=== PATIENT | male | born 1935 | race Caucasian/White ===

== ENCOUNTER 2017-02-08 06:49 | Inpatient (IN) ==
[2017-02-08] MEDS ORDERED: LIDOCAINE 1% (10mg/ml) 10mL MDV SQ ONE (07:05)
[2017-02-08] MEDS ORDERED: ONDANSETRON 4 MG/2 ML INJECTION IVP ONE (07:05)
[2017-02-08] MEDS ORDERED: DEXAMETHASONE 4 MG/ML INJECTION IVP ONE (07:05)
[2017-02-08] MEDS ORDERED: ACETAMINOPHEN 500 MG TABLET PO ONE (07:05)
[2017-02-08] MEDS ORDERED: TRANEXAMIC ACID 1,000 MG in NS 100 ML TOP SCH (07:05)
[2017-02-08] MEDS ORDERED: CEFAZOLIN 1 G INJECTION IV ONE (07:05)
[2017-02-08] MEDS ORDERED: NOZIN NASAL SWAB NAS ONE ×3 (07:05→11:47)
[2017-02-08] MEDS ORDERED: METOCLOPRAMIDE 10mg/2ml INJECTION IVP ONE (07:05)
[2017-02-08] MEDS ORDERED: FAMOTIDINE PB 20 MG/50 ML BAG IV ONE (07:05)
[2017-02-08] MEDS ORDERED: SALINE FLUSH 10ml SYRINGE IVF PRN (07:05)
--- NOTE | 2017-02-08 07:11 | History & Physical Update ---
- History and Physical Update Date: 02/08/17 Update: I evaluated this patient and found no changes in the history and clinical exam findings. The treatment plan and recommendations are also unchanged from the previous documentation.
[2017-02-08] MEDS ORDERED: VANCOMYCIN 1,000 MG INJECTION ONE (07:13)
[2017-02-08 07:36] VITALS: BMI 30.7
[2017-02-08] MEDS: NS 1,000 ML IV SCH ×4 (07:50→21:59)
[2017-02-08] MEDS ORDERED: ACETAMINOPHEN IV 1,000 MG/100 ML VIAL IV ONE (07:57)
[2017-02-08] MEDS ORDERED: TOTAL JOINT INJECTION MIXTURE 65.25 ml OPSITE ONE (08:00)
[2017-02-08] MEDS ORDERED: LIDOCAINE 1% (10mg/ml) 2mL INJ PF SDV ID ONE (08:06)
[2017-02-08] MEDS ORDERED: PROPOFOL 500 MG/50 ML VIAL IV ONE (08:22)
[2017-02-08] MEDS ORDERED: MIDAZOLAM 2mg/2ml INJECTION ONE (08:49)
[2017-02-08] MEDS ORDERED: FentaNYL 100 MCG/2 ML INJECTION ONE (09:08)
[2017-02-08] MEDS ORDERED: EPHEDRINE 50mg/ml INJECTION ONE (09:17)
[2017-02-08] MEDS ORDERED: SALINE FLUSH 10ml SYRINGE ONE (09:17)
[2017-02-08] MEDS ORDERED: EPINEPHrine 0.25 MG, BUPIVACAINE 0.25% PF 75 ML, MORPHINE SULFATE 15 MG, KETOROLAC INJ ... IJ ONE (09:24)
[2017-02-08] MEDS ORDERED: HYDROMORPHONE 2 MG/ML INJECTION ONE (09:32)
[2017-02-08] MEDS ORDERED: GLYCOPYRROLATE 0.4 MG/2 ML INJECTION ONE (09:45)
--- NOTE | 2017-02-08 09:58 | Anesthesia Preoperative Report ---
Anesthesia Preoperative Record - Date and Time Date: 02/08/17 Preoperative Diagnosis: right knee osteoarthritis NPO Since Date: 02/08/17 NPO Since Time: 00:00 Allergies/Adverse Reactions: Allergies Allergy/AdvReac Type Severity Reaction Status Date / Time levofloxacin Allergy Intermediate Verified 02/08/17 07:21 sulfamethoxazole Allergy Unknown Verified 02/08/17 07:21 trimethoprim Allergy Unknown Verified 02/08/17 07:21 - Vital Signs Vital Signs: Temp Pulse Resp BP Pulse Ox 98.2 F 57 L 15 199/89 H 96 02/08/17 07:05 02/08/17 07:36 02/08/17 07:05 02/08/17 07:05 02/08/17 07:05 Height and Weight: Height 5 ft 7 in Weight 89 kg Body Mass Index 30.7 - Medications Inpatient Medications: Current Medications Sodium Chloride (Normal Saline) 1,000 mls @ 50 mls/hr IV .Q20H HOMERO Last Admin: 02/08/17 07:50 Dose: 50 mls/hr Tranexamic Acid 1,000 mg/ (Sodium Chloride) 110 mls @ 1,000 mls/min TOP INTRAOP HOMERO Stop: 02/09/17 07:06 Isopropyl Alcohol (Nozin Nasal Swab) 1 each ARIANA 0600,1400,2200 HOMERO Sodium Chloride (Iv Flush) 10 - 80 ml IVF PRN PRN PRN Reason: Flushing Home Medications: Home Medications Medication Instructions Recorded Confirmed Type Labetalol HCl 100 mg PO BID #0 07/30/13 02/08/17 History Tamsulosin HCl 0.4 mg PO HS #0 07/30/13 02/08/17 History Aspirin 1 tab PO DAILY #0 tab 01/28/15 02/08/17 History Losartan Potassium 50 mg PO DAILY #0 tab 01/03/17 02/08/17 History Sertraline HCl 100 mg PO DAILY #0 tab 01/03/17 02/08/17 History hydroCHLOROthiazide 1 tab PO WB #0 tab 01/03/17 02/08/17 History [Hydrochlorothiazide] Is Patient on Beta Shagufta?: Yes Beta Shagufta: (LABETOLOL) - Medical History Respiratory: DENIES: Asthma, Chronic Obstructive Pulmonary Disease (COPD) Cardiovascular: Reports: Angina (stent in , heart cath in negative, no recent angina, clearance given) DENIES: Congestive Heart Failure Gastrointestional: DENIES: Gastroesophageal Reflux Disease Neuro/Musculoskeletal: Reports: Back Problems (stated had trouble with spinal in past) Renal/Endocrine: Reports: Renal Failure (chronic kidney disease stage 3) Other History: Reports: Anesthesia Reactions (difficulty with performing spinal in past) - Surgical History Cardiac Surgeries/Treatments: Reports: Cardiac Catheterization (stents 2006) GI Surgery/Treatments: Reports: Cholecystectomy, Hernia Repair (Rt ing x2), Other (colonoscopy) Surgery/Treatment: REPORT: Transurethral Resection - Social History Smoking Status: Former smoker Hx Chewing Tobacco Use: No Second Hand Exposure: No Substance Use Type: does not use Alcohol Intake Frequency: does not drink - Pertinent Findings Laboratory: CBC and BMP 02/08/17 07:22 02/08/17 07:22 BMP 02/08/17 07:22 Sodium 143 Potassium 4.3 Chloride 106 Carbon Dioxide 25 BUN 25.0 H Creatinine 1.1 Glucose 117 H Calcium 9.2 Liver Function 02/08/17 Range/Units 07:22 Total Bilirubin 0.60 (0.20-1.30) MG/DL AST 26 (17-59) U/L ALT 35 (21-72) U/L Alkaline Phosphatase 82 (38-126) U/L Albumin 4.6 (3.5-5.0) G/DL EKG Rhythm: Sinus Bradycardia, Premature Atrial Contractions, Atrial Fibrillation with RVR - Physical Exam Respiratory Exam: Present: lungs clear Cardiovascular Exam: Present: regular rate and rhythm - Airway Assessment Mallampati Score: II TMD: 3 Fingerbreadths Neck Extension: fair Teeth: poor dentation (missing and poor) Overall Assessment: may be difficult mask vent (full barth) - ASA ASA Score: 3 - Plan Anesthesia: General TIVA, General Inhalation Gases Regional/Trunk Block: Spinal - Discussion Discussion: Discussed risks/options/alternatives of anesthesia and questions answered. Patient consents. Nursing pain assessment noted. plan discussed with pt. Plan to attempt spinal as first line of anesthesia. If have difficulty, as in past, will proceed with a general with gas. Pt agrees. Present for Discussion: children Attestation Statement: Prior to the delivery of any anesthetic medication, I examined the patient, developed the plan, obtained the patient's consent and discussed the risk and benefits of the procedure with the patient/guardian.
[2017-02-08] MEDS ORDERED: VANCOMYCIN 1,000 MG INJECTION IAR ONE (10:14)
--- NOTE | 2017-02-08 10:29 | Operative Note ---
- Procedure Date of Admission: 02/08/17 Side: right Preoperative Diagnosis: knee primary DJD Postoperative Diagnosis: Same as preoperative diagnosis. Operation: total knee arthroplasty (right) Surgeon: Velma Lara MD Roller Inspector And Mender: CHUCKIE Wilkes Complications: None. Anesthesia: General Inhalation Gases Peripheral Nerve Block: Saphenous-Right Estimated Blood Loss: See Anesthesia Record. Fluids: Please see Anesthesia Record. Description of Procedure: Mr. River and his right knee were identified and marked in the preoperative holding area he is brought back to the operating suite and placed supine on the operating table. Spinal anesthetic was attempted but was not successful so than he was placed under general anesthesia and intubated. His right lower extremity was prepped and draped in my normal sterile fashion and timeout was performed. He had a varus deformity and motion on to 90 passively even when asleep. The leg was exsanguinated and tourniquet inflated 250 mmHg. A standard anterior incision followed by a medial parapatellar approach was utilized. He had severe disease in medial compartment. A distal femoral cut was made in 5 of valgus using intramedullary guide. The femur was sized at a 4 and rotation set using the epicondylar axis. Distal femoral cuts were performed. A proximal tibial cut was made using extramedullary guide. Remaining osteophytes and meniscus were removed. Gaps were checked and they were well balanced and rectangular. Trial components were placed with a 9 mm spacer. This allowed for flexion 110 and the patella tracked well. The knee was stable throughout range of motion. The patella was resurfaced with the knee in extension to a size 29. The tibia rotation was then marked and the tibia stamped at the proper rotation at a size 4. The bone was prepared for cementing and all components cemented into place and allowed to cure in extension. Betadine solution was used for 3 minutes during the curing period and then fully irrigated out with 1 L of normal saline. The tourniquet was deflated and hemostasis obtained with electrocautery. 1 g of TXA was allowed to sit in the wound for 5 minutes and then suctioned out. After the cement had cured the knee was taken through range of motion check for balance and stability which were good. Vancomycin powder was placed into the wound. The arthrotomy was closed with #1 Vicryl. The remainder of the wound was then closed by my players assistant utilizing 2-0 vycral in the subcutaneous tissue. 4-0 monocryl was used in the subcuticular layer followed by dermabond and a sterile dressing. After closure the patient will be transferred to the recovery room under the care of anesthesia.
[2017-02-08] MEDS ORDERED: ROPIVACAINE 0.5% (5mg/ml) 30ml INJ ONE (10:40)
--- NOTE | 2017-02-08 11:22 | Anesthesia Procedure Note ---
Peripheral Nerve Blockade - Procedure Physician: Amari Lara MD Date: 02/08/17 Discussion: Discussed risks/options/alternatives of anesthesia and questions answered. Patient consents. Nursing pain assessment noted. Block Start: 10:58 Block Stop: 11:05 Blocked Employed: Adductor Canal Indication: Post-Operative Pain Approach: Right Side Confirmed Position: Supine Patient: Consent, Risks/Benefits Discussed, Informed, Post Block Act. Discussed IV Sedation: No Initial Vital Signs: Temperature 98.2 F 02/08/17 07:05 Temperature Source Oral 02/08/17 07:05 Pulse Rate 57 L 02/08/17 07:05 Respiratory Rate 15 02/08/17 07:05 Blood Pressure 199/89 H 02/08/17 07:05 Blood Pressure Mean 125 02/08/17 07:05 Blood Pressure Position Sitting 02/08/17 07:05 Pulse Oximetry 96 02/08/17 07:05 Oxygen Delivery Method 02/08/17 07:05 Post Vital Signs: Temp Pulse Resp BP Pulse Ox 98.2 F 54 L 10 119/60 96 02/08/17 07:05 02/08/17 11:05 02/08/17 11:05 02/08/17 11:05 02/08/17 11:05 Initial Pain Pain Score: 0 Post Block Pain Score: 0 Prep: Chlorhexadine/ETOH Ultrasound Used?: Yes - Injectate Ropivacaine (%): 0.5 Ropivacaine (mL): 30 Was Epi 1:200,000 Used?: No Injection: Injection made incrementally with constant monitoring and aspiration every 5 ml. Negative aspirations
[2017-02-08] MEDS ORDERED: DiphenhydrAMINE 25 MG CAPSULE PO PRN (11:47)
[2017-02-08] MEDS ORDERED: DiphenhydrAMINE 50 MG/ML INJECTION IVP PRN (11:47)
[2017-02-08] MEDS ORDERED: ONDANSETRON 4 MG/2 ML INJECTION IVP PRN (11:47)
[2017-02-08] MEDS ORDERED: Oxycodone *IR* 5 MG TABLET PO PRN (11:47)
[2017-02-08] MEDS ORDERED: LORazepam 1 MG TABLET PO PRN (11:47)
--- NOTE | 2017-02-08 11:55 | Anesthesia Postoperative Note ---
- Date and Time Date: 02/08/17 Time: 11:53 - Status Patient Participated in Evaluation: Patient Participated in Person Vital Signs: Temp Pulse Resp BP Pulse Ox 96.9 F 67 16 165/76 H 94 02/08/17 11:45 02/08/17 11:45 02/08/17 11:45 02/08/17 11:45 02/08/17 11:45 Respiratory Function: Airway Patent Cardiovascular Function: Regular Pulse Mental Status: Alert and Oriented Pain Intensity: 2 Hydration: Taking PO Fluids Complications During Recover: None Apparent - Follow-Up Instructions Instructions: Per Surgeon Additional Comments: adductor canal block appears to be working well. Pt comfortable.
--- NOTE | 2017-02-08 12:13 | XRay Report ---
Indication: post-op total knee PROCEDURE: XR knee RT 2V: Encounter: Initial Comparison: None Findings: Postoperative changes of right total knee replacement are seen. There is expected postoperative subcutaneous gas. No evidence of hardware failure or acute fracture. No retained radiopaque surgical instruments or sponges. Overlying material causing artifact. Impression: New right total knee prosthesis without evidence of immediate complication. .
[2017-02-08] MEDS ORDERED: CODEINE PO PRN (12:21)
[2017-02-08] MEDS ORDERED: APAP PO PRN (12:21)
[2017-02-08] MEDS ORDERED: ACETAMINOPHEN 325 MG TABLET PO SCH (13:00)
[2017-02-08] MEDS: NOZIN NASAL SWAB NAS SCH ×5 (14:38→23:05)
[2017-02-08] MEDS: CEFAZOLIN 2 G in NS 100 ML IV SCH (17:25)
[2017-02-08] MEDS: DOCUSATE SODIUM 100 MG CAPSULE PO SCH (21:48)
[2017-02-08] MEDS: LABETALOL 100 MG TABLET PO SCH (21:49)
[2017-02-08] MEDS: ASPIRIN *EC* 325 MG TABLET PO SCH (21:52)
[2017-02-08] MEDS ORDERED: SENNOSIDES 8.6 MG TABLET PO SCH (22:00)
[2017-02-08] MEDS ORDERED: TAMSULOSIN 0.4 MG CAPSULE PO SCH (22:00)
[2017-02-09] MEDS: CEFAZOLIN 2 G in NS 100 ML IV SCH (05:13)
[2017-02-09] MEDS: NS 1,000 ML IV SCH (05:19)
[2017-02-09] MEDS: NOZIN NASAL SWAB NAS SCH ×2 (05:48)
--- NOTE | 2017-02-09 08:16 | Orthopedic Progress Note ---
Date: Subjective/Severity of Illness: Mr. River is doing well. He states he has only been using Tylenol for pain. He has been walking 200ft. No chest pain or shortness of breath. He hasn't been drinking much water. He has had 450ml in output since midnight. Creatine has had a .2 increase. Orthopedic Objective Vital signs: Temp Pulse Resp BP Pulse Ox 95.6 F L 56 L 16 133/67 96 02/09/17 03:35 02/09/17 03:35 02/09/17 03:35 02/09/17 03:35 02/09/17 03:35 Height and Weight: Height 5 ft 7 in Weight 196 lb 3.382 oz Body Mass Index 30.7 - Constitutional General Appearance: Present: alert, orientated x3, no acute distress - Respiratory Exam Present: non-labored - Cardiovascular Exam Present: pedal pulses intact Capillary Refill: < 2-3 Seconds - Abdominal Exam Present: soft - Extremities Exam Present: pulses intact, normal capillary refill. Absent: calf tenderness - Knee Exam right Knee Exam: Absent: Valgus deformity, Varus deformity, painful ROM - Detailed Extremities Exam: Vascular Peripheral pulses: 2+ posterior tibialis (L), 2+ posterior tibialis (R), 2+ dorsalis pedis (L), 2+ dorsalis pedis (R) - Integumentary Exam Present: pink, warm, dry - Neurological Exam Present: intact to light touch, no deficits - Psychiatric Exam Present: alert, oriented - Wound Management Right Knee Wound Type: Surgical Incision Dressing Status: Dry & Intact - Labs Result Diagrams: 02/09/17 04:11 02/09/17 04:11 Abnormal lab results 02/09/17 02/09/17 Range/Units 04:11 04:11 WBC 11.3 H D (4.5-11.0) T/MM3 RBC 3.88 L (4.50-5.90) M/MM3 Hgb 11.5 L D (13.5-17.5) GM/DL Hct 36.3 L D (41-53) % BUN 31.0 H (9-20) MG/DL Glucose 119 H (75-110) MG/DL Calculated Osmolality 285 H (261-280) MOSM/KG Calcium 8.2 L D (8.4-10.2) MG/DL H & H 02/08/17 02/09/17 Range/Units 07:22 04:11 Hgb 13.6 11.5 L D (13.5-17.5) GM/DL Hct 42.1 36.3 L D (41-53) % Orthopedic Assessment and Plan (1) DJD (degenerative joint disease) of knee Status: Acute Qualifiers: Osteoarthritis type: primary Laterality: right Qualified Code(s): M17.11 - Unilateral primary osteoarthritis, right knee Assessment and Plan: Continue PT. Likely D/C later today. Annie Bedolla to provide discharge plan. Continue ASA for DVT prevention keeping in mind his kidney status. (2) CKD (chronic kidney disease) stage 2, GFR 60-89 ml/min Status: Acute Assessment and Plan: He now has an acute on chronic decrease in his GFR. He still has adequate output and is asymptomatic. Continue to Hold all NSAIDS, provide fluid bolus. Hospital Course Summary Disclaimer: The visit summary below is not to be considered part of the above Progress Note.
[2017-02-09] MEDS ORDERED: POLYETHYL GLYCOL 3350 17gm PACKET PO SCH (09:00)
[2017-02-09] MEDS ORDERED: LOSARTAN 50 MG TABLET PO SCH (09:00)
[2017-02-09] MEDS ORDERED: SERTRALINE 100 MG TABLET PO SCH (09:00)
[2017-02-09] MEDS: ASPIRIN *EC* 325 MG TABLET PO SCH (09:01)
[2017-02-09] MEDS: LABETALOL 100 MG TABLET PO SCH (09:02)
[2017-02-09] MEDS: DOCUSATE SODIUM 100 MG CAPSULE PO SCH (09:02)
[2017-02-09] MEDS ORDERED: SENNOSIDES 8.6 MG TABLET PO PRN (10:42)
--- NOTE | 2017-02-09 10:51 | Extended Care Facility Orders ---
Admission Orders Admit to:: Intermediate Allergies/Adverse Reactions: Allergies levofloxacin Allergy (Intermediate, Verified 02/08/17 07:21) PARALYSIS OF ARMS AND LEGS sulfamethoxazole Allergy (Unknown, Verified 02/08/17 07:21) trimethoprim Allergy (Unknown, Verified 02/08/17 07:21) Admitting Diagnosis: Primary degenerative arthritis DJD M17.11 Admitting Physician: Amari Lara MD Attending Physician: Amari Lara MD Anticiapted Length of Stay: 30 days or less Rehab Potential: good Rehab Prognosis: good Diet: 02/08/17 Lunch Regular Diet [DIET] Diet Modifications: May use Facility Protocol or Standing Orders: Yes May have flu vaccine: Yes Evaluations/Treatment: PT, OT Intermediate Certification: I certify that SNF services are required to be given on an Inpatient basis because of the patients need for assisted care on a continuing basis for the condition(s) for which he/she received inpatient hospital services prior to his/her transfer to the SNF. SNF inpatient care is necessary for the following reasons Indication for Intermediate: Postop Assessment Care - Additional Information In Event of Arrest: Start CPR,call 911,send patient to the ER Referrals: Amari Lara MD [Physician] - 02/26/17 1:00 pm
[2017-02-09 12:38] VITALS: BP 144/71; PULSE 92; TEMP 98.2
--- NOTE | 2017-02-09 13:42 | Discharge Summary ---
Orthopedic Discharge Info Date of admission: 02/08/17 06:49 Primary care physician: Sahra Vaca APRN Attending Physician: Amari Lara MD Consults: 02/08/17 IRU Screening [Inpatient Rehab Screening] [CONS] Routine Screen requested by:: Case Management Comment Text:: R TKA. POSSIBLE DC 02/09/17. 02/08/17 07:05 Consult to Anesthesiology [CONS] Routine Consulting Provider: CHUCKIE Fox Reason For Exam: Preoperative Assessment 02/08/17 11:47 Case Management Consult [CONS] Routine Reason For Exam: Discharge Planning DME-Walker [CONS] Routine Height: 5 ft 7 in Weight: 196 lb 3.382 oz Comment: change dressing in 2 weeks Total Joint Outpatient Therapy [CONS] Routine Comment: change dressing in 2 weeks 02/08/17 13:26 Doctor [Physician Consult] [CONS] Routine Consulting Provider: Dheeraj Frank Reason For Exam: CONT CARE Ordering Provider has Notified Pension Examiner: Yes - Discharge Diagnosis (1) DJD (degenerative joint disease) of knee Qualifiers: Osteoarthritis type: primary Laterality: right Qualified Code(s): M17.11 - Unilateral primary osteoarthritis, right knee Status: Acute (2) CKD (chronic kidney disease) stage 2, GFR 60-89 ml/min Status: Acute - Procedures Procedures: TKA - Laboratory Result Diagrams: 02/09/17 04:11 02/09/17 04:11 Laboratory: Abnormal lab results 02/09/17 02/09/17 Range/Units 04:11 04:11 WBC 11.3 H D (4.5-11.0) T/MM3 RBC 3.88 L (4.50-5.90) M/MM3 Hgb 11.5 L D (13.5-17.5) GM/DL Hct 36.3 L D (41-53) % BUN 31.0 H (9-20) MG/DL Glucose 119 H (75-110) MG/DL Calculated Osmolality 285 H (261-280) MOSM/KG Calcium 8.2 L D (8.4-10.2) MG/DL H & H 02/08/17 02/09/17 Range/Units 07:22 04:11 Hgb 13.6 11.5 L D (13.5-17.5) GM/DL Hct 42.1 36.3 L D (41-53) % Orthopedic Discharge HPI - HPI Comments This patient was admitted for elective surgical tx of end stage degenerative joint disease that failed to respond to conservative treatment. Further details of this is found in the admission H&P. Orthopedic Hospital Course Hospital course: 02/09/17 13:38 After appropriate preoperative clearance and signing of operative consent, the patient was given IV antibiotics, according to orthopedic protocol. The patient was taken to the operating room and underwent elective joint arthroplasty. Following surgery, antibiotics were discontinued less than 24 hours according to joint protocol. Appropriate anticoagulants were initiated and SCDs added for DVT prevention. The dressing was clean, dry, and intact. Pain control was obtained via multimodal approach. Bowel motivation addressed with scheduled and PRN medications. Early mobilization was initiated through PT services. Discharge arrangements made by a collaborative effort between the patient and Case Management. Follow-up is scheduled in 2-3 weeks. Discharge instructions given by orthopedic providers and nursing staff at discharge. Discharge condition was good. Ongoing care required?: No Discharge Plan - Med Rec/Dispo Referrals/Follow Up: Amari Lara MD [Physician] - 02/26/17 1:00 pm [place] Instructions: [facility] [place] Marco General Instructions, [facility] [place] Ortho Postop Instructions Prescriptions: New Aspirin *EC* [Ecotrin] 325 mg PO BID Docusate Sodium [Colace] 100 mg PO BID cap Milk of Magnesia [Mom] 30 ml PO DAILY Peg 3350 17 G Packet [Miralax] 17 gm PO DAILY packet APAP/Codeine Oral Liq [Tylenol with Codeine Liquid] 10 - 20 ml PO Q4H PRN # 120 ml PRN Reason: Pain Sennosides [Senna Lax] 17.2 mg PO DAILY PRN PRN Reason: Constipation Continue Tamsulosin HCl 0.4 mg PO HS #0 Sertraline HCl 100 mg PO DAILY #0 tab Labetalol HCl 100 mg PO BID #0 hydroCHLOROthiazide [Hydrochlorothiazide] 1 tab PO WB #0 tab Losartan Potassium 50 mg PO DAILY #0 tab Discontinued Aspirin 1 tab PO DAILY #0 tab - Disposition 03 To SNU Not [facility] [place] ([facility])
--- NOTE | 2017-02-09 13:48 | Extended Care Facility Orders ---
Admission Orders Admit to:: Longterm Allergies/Adverse Reactions: Allergies levofloxacin Allergy (Intermediate, Verified 02/08/17 07:21) PARALYSIS OF ARMS AND LEGS sulfamethoxazole Allergy (Unknown, Verified 02/08/17 07:21) trimethoprim Allergy (Unknown, Verified 02/08/17 07:21) Admitting Diagnosis: Primary degenerative arthritis DJD M17.11 Admitting Physician: Amari Lara MD Attending Physician: Amari Lara MD Anticiapted Length of Stay: 30 days or less Rehab Potential: good Rehab Prognosis: good Diet: 02/08/17 Lunch Regular Diet [DIET] Diet Modifications: Wound/Incision Care: Call Dr Lara for any wound concerns. Do not remove the dressing until you talk to Dr Lara. May use Facility Protocol or Standing Orders: Yes May have flu vaccine: Yes Evaluations/Treatment: PT, OT Longterm Certification: I certify that SNF services are required to be given on an Inpatient basis because of the patients need for intermediate care on a continuing basis for the condition(s) for which he/she received inpatient hospital services prior to his/her transfer to the SNF. SNF inpatient care is necessary for the following reasons Indication for Longterm: Postop Assessment Care - Additional Information In Event of Arrest: Start CPR,call 911,send patient to the ER Resident is Aware of Diagnosis: Yes Referrals: Amari Lara MD [Physician] - 02/26/17 1:00 pm Additional Orders: PT / OT . Pt may be WBAT. Work on strengthening and ROM. Keep the dressing dry. Pt will take ASA 325mg BID x 6 weeks for DVT coverage. Encourage use of Incentive Spirometer every 4 hrs while awake.
[2017-02-09 14:40] VITALS: RESP 12; O2SAT 95
[2017-02-10] MEDS ORDERED: BISACODYL 10 MG SUPPOSITORY RECTALLY SCH (20:00)
== END 2017-02-09 14:00 | DRG 470 ==
LOC: SRG 06:49
PROVIDERS: ADMIT Orthopaedic Surgery; ATTEND Orthopaedic Surgery

== ENCOUNTER 2017-05-08 06:47 | Inpatient (IN) ==
[~2017-05-08 06:47] MED LIST: ACETAMINOPHEN 500 MG TABLET PO ONE; CEFAZOLIN 1 G INJECTION IVP ONE; DEXAMETHASONE 4 MG/ML INJECTION IVP ONE; EPINEPHrine 0.25 MG, BUPIVACAINE 0.25% PF 30 ML, MORPHINE SULFATE 15 MG, KETOROLAC INJ ... OPSITE ONE; FAMOTIDINE PB 20 MG/50 ML BAG IV ONE; LIDOCAINE 1% (10mg/ml) 2mL INJ PF SDV ID ONE; METOCLOPRAMIDE 10mg/2ml INJECTION IVP ONE; NOZIN NASAL SWAB NAS ONE; SALINE FLUSH 10ml SYRINGE IVF PRN; TRANEXAMIC ACID 1gm/NS 100ml IRR MIX IR ONE
[2017-05-08 07:09] VITALS: BMI 28.5
[2017-05-08] MEDS ORDERED: ACETAMINOPHEN 160mg/5ml ORAL LIQUID PO ONE (07:50)
[2017-05-08] MEDS: NS 1,000 ML IV SCH ×4 (07:51→13:16)
--- NOTE | 2017-05-08 08:07 | Anesthesia Preoperative Report ---
Anesthesia Preoperative Record - Date and Time Date: 05/08/17 Preoperative Diagnosis: Lt TKA M17.12; M25.562 Proposed Procedure: Left TKA NPO Since Date: 05/07/17 NPO Since Time: 23:55 Allergies/Adverse Reactions: Allergies Allergy/AdvReac Type Severity Reaction Status Date / Time chlorthalidone Allergy Unknown Itching Verified 05/08/17 07:16 ciprofloxacin [From Cipro] Allergy Unknown Rash Verified 05/08/17 07:16 codeine Allergy Unknown hallucinati Verified 05/08/17 07:16 ons ondansetron Allergy Unknown Rash Verified 05/08/17 07:16 [From Zofran (as hydrochloride)] sulfamethoxazole Allergy Unknown Verified 05/08/17 07:16 trimethoprim Allergy Unknown Verified 05/08/17 07:16 benzonatate AdvReac Unknown Dizziness Verified 05/08/17 07:16 [From Tessalon Perles] levofloxacin AdvReac Unknown severe Verified 05/08/17 07:16 muscle cramps - Vital Signs Vital Signs: Temperature 98.4 F 05/08/17 07:08 Pulse Rate 57 L 05/08/17 07:18 Respiratory Rate 17 05/08/17 07:08 Blood Pressure 152/72 H 05/08/17 07:08 Pulse Oximetry 94 05/08/17 07:08 Height and Weight: Height 5 ft 9 in Weight 87.7 kg Body Mass Index 28.5 - Medications Inpatient Medications: Current Medications Sodium Chloride (Normal Saline) 1,000 mls @ 50 mls/hr IV .Q20H HOMERO Last Admin: 05/08/17 07:51 Dose: 50 mls/hr Sodium Chloride (Iv Flush) 10 - 80 ml IVF PRN PRN PRN Reason: Flushing Home Medications: Home Medications Medication Instructions Recorded Confirmed Type Tamsulosin HCl 0.4 mg PO HS #0 07/30/13 05/08/17 History Losartan Potassium 50 mg PO DAILY #0 tab 01/03/17 05/08/17 History Sertraline HCl 100 mg PO DAILY #0 tab 01/03/17 05/08/17 History hydroCHLOROthiazide 1 tab PO WB #0 tab 01/03/17 05/08/17 History [Hydrochlorothiazide] labetalol 100 mg tablet 100 mg PO BID 02/26/17 05/08/17 History Aspirin *EC* [Ecotrin] 325 mg PO DAILY 05/03/17 05/08/17 History LORazepam [Ativan] 0.25 mg PO BID PRN 05/03/17 05/08/17 History Is Patient on Beta Shagufta?: Yes Beta Shagufta Last Dose Date/Time: 05/07/2017 - Medical History Respiratory: DENIES: Asthma, Bronchitis, Chronic Obstructive Pulmonary Disease (COPD), Dyspnea, Orthopnea, Pulmonary Embolism, Pneumonia, Upper Respiratory Infection, Pulmonary Edema, Sleep Apnea, Tuberculosis, Other Cardiovascular: Reports: Hypertension, Myocardial Infarction (1996 stent) Gastrointestional: DENIES: Obstructive Bowel, Hepatitis, Cirrhosis, Nausea or Vomiting Present, Gastroesophageal Reflux Disease, Gastrointestinal Bleeding, Hiatal Hernia, Ulcer , Morbid Obesity, Other Neuro/Musculoskeletal: Reports: Back Problems Denies: HX.MS.OSAR, Cerebrovascular Accident, Depression, Headaches, Loss of Consciousness, Muscle Weakness, Neuromuscular Disorder, Paralysis, Paresthesia, Syncope, Seizures, Other Renal/Endocrine: DENIES: Diabetes Mellitus Type 1, Diabetes Mellitus Type 2, Renal Failure, Dialysis, Thyroid Disease, Weight Loss, Weight Gain, Other - Surgical History HEENT Surgeries: Reports: Oral Surgery (wisdom tooth extraction) Cardiac Surgeries/Treatments: Reports: Cardiac Catheterization (stents 2006) GI Surgery/Treatments: Reports: Cholecystectomy, Hernia Repair (Rt ing x2), Colonoscopy Surgery/Treatment: REPORT: Transurethral Resection Musculoskeletal Surgery/Tx: Reports: Total Knee Replacement ([id number]) - Social History Smoking Status: Former smoker (quit 1976) Hx Chewing Tobacco Use: No Second Hand Exposure: No Substance Use Type: does not use Alcohol Intake Frequency: does not drink - Pertinent Findings Laboratory: CBC and BMP 05/08/17 06:57 05/08/17 06:57 BMP 05/08/17 06:57 Sodium 145 H Potassium 4.6 Chloride 108 H Carbon Dioxide 24 BUN 38.0 H Creatinine 1.4 Glucose 112 H Calcium 9.9 Liver Function 05/08/17 Range/Units 06:57 Total Bilirubin 0.50 (0.20-1.30) MG/DL AST 29 (17-59) U/L ALT 33 (21-72) U/L Alkaline Phosphatase 80 (38-126) U/L Albumin 4.7 (3.5-5.0) G/DL EKG Rhythm: Normal Sinus Rhythm - Physical Exam Respiratory Exam: Present: lungs clear, bilateral breath sounds equal Cardiovascular Exam: Present: regular rate and rhythm, no murmur - Airway Assessment Mallampati Score: I TMD: 3 Fingerbreadths Teeth: poor dentation Overall Assessment: other (barth) - ASA ASA Score: 2 - Plan Anesthesia: General Inhalation Gases Regional/Trunk Block: Spinal Peripheral Nerve Block: Saphenous-Right - Discussion Discussion: Discussed risks/options/alternatives of anesthesia and questions answered. Patient consents. Nursing pain assessment noted. Present for Discussion: spouse Attestation Statement: Prior to the delivery of any anesthetic medication, I examined the patient, developed the plan, obtained the patient's consent and discussed the risk and benefits of the procedure with the patient/guardian. - Additional Information Seen by Anesthesia: Yes
[2017-05-08] MEDS ORDERED: FentaNYL 100 MCG/2 ML INJECTION ONE ×2 (09:02→09:10)
[2017-05-08] MEDS ORDERED: MIDAZOLAM 2mg/2ml INJECTION ONE ×2 (09:02→09:10)
[2017-05-08] MEDS ORDERED: BUPIVACAINE 0.75%/DEXTROSE 8.5% SPINAL 2 ML AMPULE IJ ONE (09:04)
[2017-05-08] MEDS ORDERED: PROPOFOL 0 MG/0 ML VIAL IV ONE (09:11)
[2017-05-08] MEDS ORDERED: PROPOFOL 500 MG/50 ML VIAL IV ONE ×2 (09:24)
[2017-05-08] MEDS ORDERED: KETAMINE 500 MG/10 ML INJECTION ONE (09:25)
[2017-05-08] MEDS ORDERED: ESMOLOL 100 MG/10 ML INJECTION ONE (09:26)
[2017-05-08] MEDS ORDERED: LIDOCAINE 2% (100mg/5mL) PF 5ml vl ONE (09:26)
[2017-05-08] MEDS ORDERED: EPHEDRINE 50mg/ml INJECTION ONE (09:40)
[2017-05-08] MEDS ORDERED: VANCOMYCIN 1,000 MG INJECTION ONE (09:49)
[2017-05-08] MEDS ORDERED: VANCOMYCIN 1,000 MG INJECTION IAR ONE (11:16)
--- NOTE | 2017-05-08 11:37 | Operative Note ---
- Procedure Side: left Preoperative Diagnosis: knee primary DJD Postoperative Diagnosis: Same as preoperative diagnosis. Operation: total knee arthroplasty Surgeon: Velma Lara MD Machine Ceramic Coater: Ish Thornton Complications: None. Regional/Trunk Block: Spinal Peripheral Nerve Block: Saphenous-Left Estimated Blood Loss: See Anesthesia Record. Fluids: Please see Anesthesia Record. Description of Procedure: Mr. River and his left knee were identified in the preoperative holding area. A saphenous nerve block was placed. He is brought back to the operating suite and spinal anesthetic administered. He's placed supine on the operating table his left lower extremity was prepped and draped in my normal sterile fashion. Timeout was performed. Mr. River had a fixed varus deformity. A anterior midline incision followed by a medial parapatellar arthrotomy was performed. Anterior fat pad and meniscus were removed. I then placed tibial and femoral arrays. The bone wasn't ruptured with the robot. He had 15 of varus in extension. Gaps were captured with the knee corrected after medial release and osteophytes were removed. Adjustments were made to the components using a MeetDoctor software. The MeetDoctor robotic arm was then brought in to assist with bone cuts. Then removed remaining osteophytes and meniscus. With trial components in place and a 9 mm spacer he was still very tight medially and he hyperextended. We recut the tibia had 3 more degrees of varus. Also removed more osteophytes medially and laterally. And then with a 13 mm spacer he felt much more stable. His patella tracked well and was resurfaced to a 32. Overall limb alignment after adjustments was 5. He was well balanced throughout range of motion. The leg was then exsanguinated and the tourniquet inflated to 250 mmHg. The bone was prepared for cementing wounds were cemented into place.1 g of TXA was allowed to sit in the wound for 5 minutes and then suctioned out. The tourniquet was then let down and hemostasis obtained with select cautery. 1 g of vancomycin powder was placed into the joint. The capsulotomy was closed with #1 Vicryl. I then left my office manager executive assistant close the subcutaneous tissue 2-0 Vicryl all by 4-0 Monocryl and Dermabond on the skin. The drapes were removed and patient was taken back to recovery room in the care of anesthesia he tolerated the procedure well and there were no complications.
[2017-05-08] MEDS ORDERED: ROPIVACAINE 0.5% (5mg/ml) 30ml INJ ONE (11:53)
--- NOTE | 2017-05-08 12:01 | History & Physical Update ---
- History and Physical Update Date: 05/08/17 Update: I evaluated this patient and found no changes in the history and clinical exam findings. The treatment plan and recommendations are also unchanged from the previous documentation.
--- NOTE | 2017-05-08 12:42 | Anesthesia Procedure Note ---
Peripheral Nerve Blockade - Procedure Physician: Amari Lara MD Date: 05/08/17 Surgical Procedure: Left TKA Discussion: Discussed risks/options/alternatives of anesthesia and questions answered. Patient consents. Nursing pain assessment noted. Block Start: 12:15 Block Stop: 12:20 Blocked Employed: Adductor Canal Indication: Post-Operative Pain Approach: Left Side Confirmed Position: Supine Patient: Consent, Risks/Benefits Discussed, Informed, Post Block Act. Discussed IV Sedation: No Initial Vital Signs: Temperature 98.4 F 05/08/17 07:08 Temperature Source Oral 05/08/17 07:08 Pulse Rate 62 05/08/17 07:08 Respiratory Rate 17 05/08/17 07:08 Blood Pressure 152/72 H 05/08/17 07:08 Blood Pressure Mean 98 05/08/17 07:08 Blood Pressure Position Sitting 05/08/17 07:08 Pulse Oximetry 94 05/08/17 07:08 Oxygen Delivery Method 05/08/17 07:08 Post Vital Signs: Temperature 97.0 F 05/08/17 12:08 Pulse Rate 68 05/08/17 12:08 Respiratory Rate 16 05/08/17 12:08 Blood Pressure 134/72 05/08/17 12:08 Pulse Oximetry 91 05/08/17 12:08 Initial Pain Pain Score: 0 Post Block Pain Score: 0 Prep: Chlorhexadine/ETOH Ultrasound Used?: Yes - Injectate Ropivacaine (%): 0.5 Ropivacaine (mL): 15 Was Epi 1:200,000 Used?: No Injection: Injection made incrementally with constant monitoring and aspiration every ml
--- NOTE | 2017-05-08 12:43 | Anesthesia Postoperative Note ---
- Date and Time Date: 05/08/17 Time: 12:43 - Status Patient Participated in Evaluation: Patient Participated in Person Vital Signs: Temperature 97.0 F 05/08/17 12:08 Pulse Rate 68 05/08/17 12:08 Respiratory Rate 16 05/08/17 12:08 Blood Pressure 134/72 05/08/17 12:08 Pulse Oximetry 91 05/08/17 12:08 Respiratory Function: Airway Patent, Regular Respirations Cardiovascular Function: Regular Pulse EKG Rhythm: Sinus Bradycardia Mental Status: Alert and Oriented Pain Intensity: 0 Hydration: IV Infusing Complications During Recover: None Apparent - Follow-Up Instructions Instructions: Per Surgeon
[2017-05-08] MEDS ORDERED: DiphenhydrAMINE 25 MG CAPSULE PO PRN (13:06)
[2017-05-08] MEDS ORDERED: ONDANSETRON 4 MG/2 ML INJECTION IVP PRN (13:06)
[2017-05-08] MEDS ORDERED: DiphenhydrAMINE 50 MG/ML INJECTION IVP PRN (13:06)
[2017-05-08] MEDS ORDERED: TRAMADOL 50 MG TABLET PO PRN (13:06)
[2017-05-08] MEDS ORDERED: LORazepam 1 MG TABLET PO PRN (13:06)
[2017-05-08] MEDS ORDERED: NOZIN NASAL SWAB NAS ONE (13:06)
[2017-05-08] MEDS ORDERED: LORazepam 0.5 MG TABLET PO PRN (13:06)
[2017-05-08] MEDS: NOZIN NASAL SWAB NAS SCH ×2 (13:09→21:32)
--- NOTE | 2017-05-08 13:12 | XRay Report ---
Indication: postoperative image PROCEDURE: XR knee LT 2V: Encounter: Initial Comparison: March 21, 2017 Findings: Postoperative changes of left total knee replacement are seen. There is expected postoperative subcutaneous gas. No evidence of hardware failure or acute fracture. No retained radiopaque surgical instruments or sponges. Overlying material causing artifact. Impression: New left total knee prosthesis without evidence of immediate complication. .
[2017-05-08] MEDS: ACETAMINOPHEN 325 MG TABLET PO SCH ×3 (13:22→21:30)
[2017-05-08] MEDS: CEFAZOLIN 2 G in NS 100 ML IV SCH (16:40)
[2017-05-08] MEDS ORDERED: TAMSULOSIN 0.4 MG CAPSULE PO SCH (21:00)
[2017-05-08] MEDS ORDERED: LABETALOL 100 MG TABLET PO SCH (21:00)
[2017-05-08] MEDS ORDERED: SENNOSIDES 8.6 MG TABLET PO SCH (21:00)
[2017-05-08] MEDS: ASPIRIN *EC* 325 MG TABLET PO SCH (21:30)
[2017-05-08] MEDS: DOCUSATE SODIUM 100 MG CAPSULE PO SCH (21:32)
[2017-05-08] MEDS ORDERED: FALL RISK - PHARMACY CONSULT MC PRN (23:21)
[2017-05-09] MEDS: CEFAZOLIN 2 G in NS 100 ML IV SCH (00:56)
[2017-05-09] MEDS: NS 1,000 ML IV SCH (04:04)
[2017-05-09] MEDS: NOZIN NASAL SWAB NAS SCH ×2 (05:41→13:10)
--- NOTE | 2017-05-09 06:43 | Orthopedic Progress Note ---
Date: Subjective/Severity of Illness: Staci had a TKA 05/08. His HR dropped into the upper 30's last night but his BP remained normal. Pt was asymptomatic. I have his b-aidan on hold this AM. No lightheadedness or dizziness this AM. Denies CP or SOA. Orthopedic Objective PO Vital signs: Temperature 97.0 F 05/09/17 03:25 Pulse Rate 53 L 05/09/17 03:25 Respiratory Rate 18 05/09/17 03:25 Blood Pressure 139/70 05/09/17 03:25 Pulse Oximetry 96 05/09/17 03:25 Height and Weight: Height 5 ft 9 in Weight 193 lb 5.526 oz Body Mass Index 28.5 - Constitutional General Appearance: Present: alert, no acute distress - Respiratory Exam Present: non-labored - Cardiovascular Exam Present: Regular Rate/Rhythm (this AM.), other (HR upper 30's overnight to 50's now.) - Extremities Exam Extremities: Present: pulses intact, normal capillary refill. Absent: calf tenderness - Surgical Site Incision: Mepilex dressing intact, no drainage (On the Mepilex.), bloody drainage present (On the pin site dressing.) - Neurological Exam Present: no deficits - Psychiatric Exam Present: alert, normal affect - Labs Result Diagrams: 05/09/17 04:03 05/09/17 04:03 Abnormal lab results 05/08/17 05/08/17 05/09/17 Range/Units 06:57 06:57 04:03 RBC 3.63 L (4.50-5.90) M/MM3 Hgb 10.7 L D (13.5-17.5) GM/DL Hct 33.7 L D (41-53) % [place] % (Auto) 10.5 H (0-9.0) % Eos % (Auto) 5.1 H (0-4) % Sodium 145 H (134-144) MEQ/L Chloride 108 H (98-107) MEQ/L BUN 38.0 H (9-20) MG/DL BUN/Creatinine Ratio 27 H (6-26) RATIO Glucose 112 H (75-110) MG/DL Calculated Osmolality 289 H (261-280) MOSM/KG 05/09/17 Range/Units 04:03 RBC (4.50-5.90) M/MM3 Hgb (13.5-17.5) GM/DL Hct (41-53) % [place] % (Auto) (0-9.0) % Eos % (Auto) (0-4) % Sodium 145 H (134-144) MEQ/L Chloride 114 H (98-107) MEQ/L BUN 39.0 H (9-20) MG/DL BUN/Creatinine Ratio 28 H (6-26) RATIO Glucose 122 H (75-110) MG/DL Calculated Osmolality 289 H (261-280) MOSM/KG H & H 05/08/17 05/09/17 Range/Units 06:57 04:03 Hgb 13.9 10.7 L D (13.5-17.5) GM/DL Hct 42.7 33.7 L D (41-53) % Orthopedic Assessment and Plan (1) Primary osteoarthritis of left knee Status: Acute Assessment and Plan: Current anti-coagulation protocol for VTE prophylaxis. SCD's. PT/OT services to improve independent function. Discharge Planning per Case Management. (2) Bradycardia Status: Resolved Assessment and Plan: Will hold Labetalol this AM and monitor HR. BP remains normal. - Anticoagulation Therapy Anticoagulation: ASA 325 mg PO BID x6 weeks Hospital Course Summary Disclaimer: The visit summary below is not to be considered part of the above Progress Note.
[2017-05-09] MEDS: ACETAMINOPHEN 325 MG TABLET PO SCH ×2 (08:35→12:07)
[2017-05-09] MEDS: ASPIRIN *EC* 325 MG TABLET PO SCH (08:35)
[2017-05-09] MEDS: DOCUSATE SODIUM 100 MG CAPSULE PO SCH (08:35)
[2017-05-09] MEDS ORDERED: POLYETHYL GLYCOL 3350 17gm PACKET PO SCH (09:00)
[2017-05-09] MEDS ORDERED: LOSARTAN 50 MG TABLET PO SCH (09:00)
[2017-05-09] MEDS ORDERED: SERTRALINE 100 MG TABLET PO SCH (09:00)
[2017-05-09] MEDS ORDERED: SENNOSIDES 8.6 MG TABLET PO PRN (12:02)
[2017-05-09 12:59] VITALS: RESP 16
--- NOTE | 2017-05-09 12:59 | Extended Care Facility Orders ---
Admission Orders Admit to:: Half-Way Allergies/Adverse Reactions: Allergies chlorthalidone Allergy (Unknown, Verified 05/08/17 07:16) Itching per h&p 04-13-17 ciprofloxacin [From Cipro] Allergy (Unknown, Verified 05/08/17 07:16) Rash per h&p dated 04-13-17 codeine Allergy (Unknown, Verified 05/08/17 07:16) hallucinations per h&p dated 04-13-17 ondansetron [From Zofran (as hydrochloride)] Allergy (Unknown, Verified 07:16) Rash per h&p dated 04-13-17 sulfamethoxazole Allergy (Unknown, Verified 05/08/17 07:16) trimethoprim Allergy (Unknown, Verified 05/08/17 07:16) benzonatate [From Tessalon Perles] Adverse Reaction (Unknown, Verified 05/08/17 07:16) Dizziness per h&p dated 04-13-17 levofloxacin Adverse Reaction (Unknown, Verified 05/08/17 07:16) severe muscle cramps 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; 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 Admitting Physician: Amari Lara MD Attending Physician: Amari Lara MD Anticiapted Length of Stay: 30 days or less Rehab Potential: good Rehab Prognosis: good Diet: 05/08/17 Lunch Regular Diet [DIET] Diet Modifications: May use Facility Protocol or Standing Orders: Yes May have flu vaccine: Yes Evaluations/Treatment: PT, OT Half-Way Certification: I certify that SNF services are required to be given on an Inpatient basis because of the patients need for [facility] care on a continuing basis for the condition(s) for which he/she received inpatient hospital services prior to his/her transfer to the SNF. SNF inpatient care is necessary for the following reasons Indication for Half-Way: Postop Assessment Care - Additional Information In Event of Arrest: Start CPR,call 911,send patient to the ER Referrals: Amari Lara MD [Physician] - 05/30/17 8:30 am
--- NOTE | 2017-05-09 14:33 | Discharge Instructions ---
Discharge Plan - Med Rec/Dispo Referrals/Follow Up: Amari Lara MD [Physician] - 05/30/17 8:30 am [facility] Instructions: [facility] Postop Instructions Additional Instructions: Please make a follow up with PCP within 1 week to re evaluate pulse and when to re start Labetalol. Aspirin 325 PO BID is being used for DVT prevention. He needs to complete a 6 week course. Prescriptions: New Aspirin *EC* [Ecotrin] 325 mg PO BID #84 tab Acetaminophen [Tylenol] 650 mg PO QID #100 tab Continue Tamsulosin HCl 0.4 mg PO HS #0 Sertraline HCl 100 mg PO DAILY #0 tab hydroCHLOROthiazide [Hydrochlorothiazide] 1 tab PO WB #0 tab Losartan Potassium 50 mg PO DAILY #0 tab LORazepam [Ativan] 0.25 mg PO BID PRN PRN Reason: Anxiety Discontinued Aspirin *EC* [Ecotrin] 325 mg PO DAILY labetalol 100 mg tablet 100 mg PO BID - Disposition 03 To SN[facility] ([facility])
--- NOTE | 2017-05-09 14:36 | Discharge Summary ---
Orthopedic Discharge Info Date of admission: 05/08/17 06:47 Primary care physician: Sahra Vaca APRN Attending Physician: Amari Lara MD Consults: 05/08/17 05:30 Consult to Anesthesiology [CONS] Routine Consulting Provider: CHUCKIE Fox Reason For Exam: Preoperative Assessment 05/08/17 13:06 Case Management Consult [CONS] Routine Reason For Exam: Discharge Planning DME-Walker [CONS] Routine Height: 5 ft 9 in Weight: 193 lb 5.526 oz Comment: change dressing in 2 weeks Total Joint Outpatient Therapy [CONS] Routine Comment: change dressing in 2 weeks 05/09/17 08:22 Doctor [Physician Consult] [CONS] Routine Consulting Provider: Dheeraj Frank Reason For Exam: SNF Ordering Provider has Notified Drip Molder: Yes - Discharge Diagnosis (1) Primary osteoarthritis of left knee Status: Acute (2) Bradycardia Status: Resolved - Procedures Procedures: Procedures Replacement of Left Knee Joint with Synthetic Substitute, Cemented, Open Approach (02/08/17) - Laboratory Result Diagrams: 05/09/17 04:03 05/09/17 04:03 Laboratory: Abnormal lab results 05/09/17 05/09/17 Range/Units 04:03 04:03 RBC 3.63 L (4.50-5.90) M/MM3 Hgb 10.7 L D (13.5-17.5) GM/DL Hct 33.7 L D (41-53) % Sodium 145 H (134-144) MEQ/L Chloride 114 H (98-107) MEQ/L BUN 39.0 H (9-20) MG/DL BUN/Creatinine Ratio 28 H (6-26) RATIO Glucose 122 H (75-110) MG/DL Calculated Osmolality 289 H (261-280) MOSM/KG H & H 05/08/17 05/09/17 Range/Units 06:57 04:03 Hgb 13.9 10.7 L D (13.5-17.5) GM/DL Hct 42.7 33.7 L D (41-53) % Orthopedic Discharge HPI - HPI Comments This patient was admitted for elective surgical tx of end stage degenerative joint disease that failed to respond to conservative treatment. Further details of this is found in the admission H&P. Orthopedic Hospital Course Ongoing care required?: No Comments: After appropriate preoperative clearance and signing of operative consent, the patient was given IV antibiotics, according to orthopedic protocol. The patient was taken to the operating room and underwent elective joint arthroplasty. Following surgery, antibiotics were discontinued less than 24 hours according to joint protocol. Appropriate anticoagulants were initiated and SCDs added for DVT prevention. The dressing was clean, dry, and intact. Pain control was obtained via multimodal approach. Bowel motivation addressed with scheduled and PRN medications. Early mobilization was initiated through PT services. Discharge arrangements made by a collaborative effort between the patient and Case Management. Post op day one bradycardia was noted with normal blood pressure. Labetalol was held and pulse returned to normal range. On discharge follow up within 1 week was recommended to re evaluate when to re start Labetalol. Follow-up is scheduled in 2-3 weeks. Discharge instructions given by orthopedic providers and nursing staff at discharge. Discharge condition was good. - Postoperative Anemia patient received IVF, labs monitored daily, no intervention required Discharge Plan - Med Rec/Dispo Referrals/Follow Up: Amari Lara MD [Physician] - 05/30/17 8:30 am [facility] Instructions: [facility] Postop Instructions Additional Instructions: Please make a follow up with PCP within 1 week to re evaluate pulse and when to re start Labetalol. Aspirin 325 PO BID is being used for DVT prevention. He needs to complete a 6 week course. Prescriptions: New Aspirin *EC* [Ecotrin] 325 mg PO BID #84 tab Acetaminophen [Tylenol] 650 mg PO QID #100 tab Continue Tamsulosin HCl 0.4 mg PO HS #0 Sertraline HCl 100 mg PO DAILY #0 tab hydroCHLOROthiazide [Hydrochlorothiazide] 1 tab PO WB #0 tab Losartan Potassium 50 mg PO DAILY #0 tab LORazepam [Ativan] 0.25 mg PO BID PRN PRN Reason: Anxiety Discontinued Aspirin *EC* [Ecotrin] 325 mg PO DAILY labetalol 100 mg tablet 100 mg PO BID - [facility]position 03 To [facility] ([facility])
[2017-05-09 16:59] VITALS: BP 148/67; PULSE 58; TEMP 97.9; O2SAT 97
[2017-05-10] MEDS ORDERED: BISACODYL 10 MG SUPPOSITORY RECTALLY SCH (20:00)
== END 2017-05-09 16:50 | DRG 470 ==
LOC: SRG 06:47
PROVIDERS: ADMIT Orthopaedic Surgery; ATTEND Orthopaedic Surgery